=== PATIENT | male | born 1985 | race Two or more races ===

== ENCOUNTER → 2020-07-26 13:19 | Outpatient (CLI) | payer OTHER ==
[~2020-07-26 13:19] MED LIST: HEMATOGEN FA S1 EACH PO; PROTONIX40 MG PO
== END | disposition home or self-care (01) ==
LOC: LAB 13:19
PROVIDERS: ATTEND Radiology Diagnostic Radiology
DX: N20.0 Calculus of kidney (principal)

== ENCOUNTER → 2020-07-28 | Outpatient (CLI) | payer OTHER | END | disposition home or self-care (01) | LOC: MRI 07-26 13:49 | PROVIDERS: ATTEND Surgery | DX: C20 Malignant neoplasm of rectum (principal); R59.0 Localized enlarged lymph nodes; K62.5 Hemorrhage of anus and rectum; K59.09 Other constipation | CPT/HCPCS: 72196 ==

== ENCOUNTER 2020-08-02 06:30 | Day surgery (SDC) | payer OTHER | END 2020-08-02 13:45 | disposition home or self-care (01) | LOC: AMB-ENDOS 06:30 | PROVIDERS: ATTEND Surgery | DX: D12.8 Benign neoplasm of rectum (principal); K64.1 Second degree hemorrhoids; Z20.828 Contact with and (suspected) exposure to other viral communicable diseases ==

== ENCOUNTER → 2020-08-04 12:21 | Outpatient (CLI) | payer OTHER | END | disposition home or self-care (01) | LOC: LAB 12:21 | PROVIDERS: ATTEND Surgery | DX: U07.1 COVID-19 (principal); E11.9 Type 2 diabetes mellitus without complications; K59.09 Other constipation; Z20.828 Contact with and (suspected) exposure to other viral communicable diseases; Z11.59 Encounter for screening for other viral diseases; C20 Malignant neoplasm of rectum; R59.0 Localized enlarged lymph nodes; K62.5 Hemorrhage of anus and rectum ==

== ENCOUNTER 2020-08-06 10:20 | Outpatient (CLI) | payer OTHER ==
[2020-08-06] MEDS ORDERED: PROTONIX40 MG PO (14:52)
[2020-08-06] MEDS ORDERED: HEMATOGEN FA S1 EACH PO (14:54)
== END 2020-08-06 10:27 | disposition home or self-care (01) ==
LOC: TOM 10:20
PROVIDERS: ATTEND Surgery
DX: C20 Malignant neoplasm of rectum (principal); R59.0 Localized enlarged lymph nodes; K62.5 Hemorrhage of anus and rectum; K59.09 Other constipation; K56.690 Other partial intestinal obstruction

== ENCOUNTER 2020-08-06 11:30 | Inpatient (IN) | payer OTHER ==
[~2020-08-06] VITALS: Ht 185.4 cm; Wt 90.7 kg
[2020-08-06] MEDS ORDERED: PROTONIX40 MG PO (14:52)
[2020-08-06] MEDS ORDERED: HEMATOGEN FA S1 EACH PO (14:54)
[2020-09-04] MEDS ORDERED: LOPERAMIDE2 MG PO (14:24)
[2020-09-04] MEDS ORDERED: PERCOCET 5-3251 EACH PO (14:26)
== END 2020-09-04 15:10 | disposition home or self-care (01) | DRG 331 ==
LOC: SURH 08-10 11:30 → O/R 08-31 07:46 → SURH 08-31 11:30 → SURG 09-01 14:13
PROVIDERS: ADMIT Surgery; ATTEND Surgery
PROC: 0DBN4ZZ Excision of Sigmoid Colon, Percutaneous Endoscopic Approach (ICD-10-PCS; 2020-08-31)
PROC: 07BC4ZX Excision of Pelvis Lymphatic, Percutaneous Endoscopic Approach, Diagnostic (ICD-10-PCS; 2020-08-31)
PROC: 0D1B4Z4 Bypass Ileum to Cutaneous, Percutaneous Endoscopic Approach (ICD-10-PCS; 2020-08-31)
PROC: 0DTP4ZZ Resection of Rectum, Percutaneous Endoscopic Approach (ICD-10-PCS; principal; 2020-08-31 13:30)
PROC: 4A12X4Z Monitoring of Cardiac Electrical Activity, External Approach (ICD-10-PCS; 2020-09-01)
DX: C20 Malignant neoplasm of rectum (principal); R59.0 Localized enlarged lymph nodes; G47.39 Other sleep apnea

== ENCOUNTER 2020-10-25 06:02 | Day surgery (SDC) | payer OTHER ==
[~2020-10-25 06:02] MED LIST changes: +LOPERAMIDE2 MG PO; +PERCOCET 5-3251 EACH PO
== END 2020-10-25 13:20 | disposition home or self-care (01) ==
LOC: AMB-ENDOS 06:02 → CIR.AMB 15:15
PROVIDERS: ATTEND Surgery
DX: D12.0 Benign neoplasm of cecum (principal); D12.2 Benign neoplasm of ascending colon; Z20.828 Contact with and (suspected) exposure to other viral communicable diseases

== ENCOUNTER 2020-12-08 09:45 | Inpatient (IN) | payer OTHER ==
[~2020-12-08] VITALS: Ht 185.4 cm; Wt 90.7 kg
[2020-12-08] MEDS ORDERED: VITABEX IRON C1 EACH PO (11:22)
[2020-12-17] MEDS ORDERED: OMEPRAZOLE20 MG PO (10:54)
[2020-12-17] MEDS ORDERED: PERCOCET 5-3251 EACH PO (10:54)
== END 2020-12-17 11:26 | disposition home or self-care (01) | DRG 330 ==
LOC: O/R 12-14 06:02 → SURG 12-14 06:02 → SURH 12-14 09:45 → SURG 12-14 10:46 → SURH 12-14 11:00 → SURG 12-17 11:26
PROVIDERS: ADMIT Surgery; ATTEND Surgery
PROC: 07BC4ZX Excision of Pelvis Lymphatic, Percutaneous Endoscopic Approach, Diagnostic (ICD-10-PCS; 2020-12-14)
PROC: 0DSB4ZZ Reposition Ileum, Percutaneous Endoscopic Approach (ICD-10-PCS; 2020-12-14)
PROC: 0DTF4ZZ Resection of Right Large Intestine, Percutaneous Endoscopic Approach (ICD-10-PCS; principal; 2020-12-14 10:45)
DX: D12.2 Benign neoplasm of ascending colon (principal); C20 Malignant neoplasm of rectum; Z93.2 Ileostomy status

== ENCOUNTER 2020-12-31 07:32 | Inpatient (IN) | payer OTHER ==
[~2020-12-31] VITALS: Ht 185.4 cm
[~2020-12-31 07:32] MED LIST changes: +OMEPRAZOLE20 MG PO; +VITABEX IRON C1 EACH PO
--- NOTE | 2020-12-31 07:46 | NUR ---
PTE REFERIDO POR DR JOSE M TRAMMELL REFIERE TRISH DOLOR AREA DEL ABDOMEN Y FIEBRE SE PHUONG S/V YS EUBIAC EN AREA DE OBSERVACION
--- NOTE | 2020-12-31 09:06 | NUR ---
MR Nikita MENDES ORIENTA A PACIENTE SOBRE ORDENES MEDICAS, COLECTA MUESTRAS DE MADIHA, CANALIZA VENA Y ADMINISTRA JOANA ORDENADO. SE HACE ENTREGA DE CONSTRASTE CON INSTRUCCIONES DE MARY INGERIRLO, PACIENTE REFIERE ENTENDER. PENDIENTE MUESTRA DE ORINA, TIENE ENVASE.
[2021-01-12] MEDS ORDERED: PEPCID AC20 MG PO (11:15)
[2021-01-12] MEDS ORDERED: INTEGRA F CAPS1 EACH PO (11:15)
[2021-01-12] MEDS ORDERED: PROTONIX40 MG PO (11:15)
[2021-01-12] MEDS ORDERED: INTESTINEX680 M1 PO (11:15)
[2021-01-12] MEDS ORDERED: ABANEU-SL TABL1 EACH SL (11:15)
[2021-01-12] MEDS ORDERED: AUGMENTIN PO (11:15)
== END 2021-01-12 12:03 | disposition home or self-care (01) | DRG 856 ==
LOC: ER 07:32 → SEC-K 16:23 → MEDJ 16:23 → MEDI 16:32 → MEDJ 17:07
PROVIDERS: ADMIT Internal Medicine Geriatric Medicine; ATTEND Internal Medicine Geriatric Medicine
PROC: BW21Y0Z Computerized Tomography (CT Scan) of Abdomen and Pelvis using Other Contrast, Unenhanced and Enhanced (ICD-10-PCS; 2020-12-31)
PROC: 02HV33Z Insertion of Infusion Device into Superior Vena Cava, Percutaneous Approach (ICD-10-PCS; 2021-01-01)
PROC: 3E04329 Introduction of Other Anti-infective into Central Vein, Percutaneous Approach (ICD-10-PCS; 2021-01-01)
PROC: 0W9J40Z Drainage of Pelvic Cavity with Drainage Device, Percutaneous Endoscopic Approach (ICD-10-PCS; principal; 2021-01-03)
PROC: BW21Y0Z Computerized Tomography (CT Scan) of Abdomen and Pelvis using Other Contrast, Unenhanced and Enhanced (ICD-10-PCS; 2021-01-10)
DX: T81.43XA Infection following a procedure, organ and space surgical site, initial encounter (principal); K65.1 Peritoneal abscess; K85.90 Acute pancreatitis without necrosis or infection, unspecified; C20 Malignant neoplasm of rectum; F43.23 Adjustment disorder with mixed anxiety and depressed mood; D64.9 Anemia, unspecified; R82.71 Bacteriuria; Z93.2 Ileostomy status; G47.39 Other sleep apnea; Z20.822 Contact with and (suspected) exposure to COVID-19

== ENCOUNTER 2021-02-11 07:19 | Day surgery (SDC) | payer OTHER ==
[~2021-02-11 07:19] MED LIST changes: +ABANEU-SL TABL1 EACH SL; +AUGMENTIN PO; +INTEGRA F CAPS1 EACH PO; +INTESTINEX680 M1 PO; +PEPCID AC20 MG PO
[2021-02-11] MEDS ORDERED: PERCOCET 5-3251 EACH PO (11:22)
== END 2021-02-11 15:50 | disposition home or self-care (01) ==
LOC: CIR.AMB 07:19
PROVIDERS: ATTEND Surgery
DX: C20 Malignant neoplasm of rectum (principal); Z20.822 Contact with and (suspected) exposure to COVID-19
CPT/HCPCS: 36561; C1751

== ENCOUNTER 2021-03-08 08:50 | Outpatient (CLI) | payer OTHER | END 2021-03-08 08:51 | disposition home or self-care (01) | LOC: PPH VACUNA 08:50 | DX: Z23 Encounter for immunization (principal) ==

== ENCOUNTER → 2021-03-31 08:09 | Outpatient (CLI) | payer OTHER | END | disposition home or self-care (01) | LOC: PPH VACUNA 08:09 | DX: Z23 Encounter for immunization (principal) ==

== ENCOUNTER → 2021-07-13 12:32 | Outpatient (CLI) | payer OTHER | END | disposition home or self-care (01) | LOC: LAB 12:32 | PROVIDERS: ATTEND Internal Medicine Geriatric Medicine | DX: D50.8 Other iron deficiency anemias (principal); E03.8 Other specified hypothyroidism; E78.2 Mixed hyperlipidemia; I11.9 Hypertensive heart disease without heart failure; E56.8 Deficiency of other vitamins; N39.0 Urinary tract infection, site not specified; Z12.11 Encounter for screening for malignant neoplasm of colon; E55.9 Vitamin D deficiency, unspecified; N19 Unspecified kidney failure; E11.9 Type 2 diabetes mellitus without complications; R80.8 Other proteinuria; C18.0 Malignant neoplasm of cecum; K92.1 Melena ==

== ENCOUNTER → 2021-07-15 15:00 | Outpatient (CLI) | payer OTHER | END | disposition home or self-care (01) | LOC: PPH VACUNA 15:00 | DX: Z23 Encounter for immunization (principal) ==

== ENCOUNTER → 2021-10-24 | Day surgery (SDC) | payer OTHER ==
[~2021-10-24] MED LIST changes: +PEPCID AC10 MG; +ULTRAM50 MG
== END | disposition home or self-care (01) ==
LOC: ADM 10-17 13:30 → CIR.AMB 10:18
PROVIDERS: ATTEND Surgery
DX: K62.89 Other specified diseases of anus and rectum (principal); Z20.822 Contact with and (suspected) exposure to COVID-19

== ENCOUNTER 2021-10-28 16:36 | Inpatient (IN) | payer OTHER ==
[~2021-10-28] VITALS: Ht 185.4 cm; Wt 81.6 kg
[~2021-10-28 16:36] MED LIST changes: -PEPCID AC10 MG; -ULTRAM50 MG
--- NOTE | 2021-10-28 17:26 | NUR ---
PACIENTE ALERTA Y ORIENTADO POR DANIS. REFIERE SER PACIENTE DE CANCER COLON, LE REALIZARON MADHURI COLONOSCOPIA EL NEREIDA TRAMMELL Y DESDE ENTONCES COMENZO CON VOMITOS Y DIARREAS CON MADIHA.LUEGO COMENZO CON FIEBRE. REFIERE LAS DIARREAS CONTINUAN HOY CON 5 Y NAUSEAS.
[2021-10-28] MEDS ORDERED: PEPCID AC10 MG (17:28)
[2021-10-28] MEDS ORDERED: ULTRAM50 MG (17:29)
--- NOTE | 2021-10-28 18:53 | NUR ---
PTE ALERTA,ESTABLE Y ORIENTADA.SE EDUCA SOBRE EL TRATAMIENTO QUE RECIBIRA EN EL HOSPITAL Y ESTA REFIERE ENTENDER.SE LE PHUONG MUESTRAS DE MADIHA ANUP ORDEN MEDICA Y SE LE ADMINISTRA MEDICAMENTOS ANUP ORDEN MEDICA.
--- NOTE | 2021-10-28 22:12 | NUR ---
[facility]
[2021-11-03] MEDS ORDERED: PRILOSEC OTC20 MG PO (17:47)
[2021-11-03] MEDS ORDERED: INTESTINEX680 M1 PO (17:47)
[2021-11-03] MEDS ORDERED: LEVSIN/SL0.125 MG SL (17:47)
== END 2021-11-03 20:01 | disposition home or self-care (01) | DRG 391 ==
LOC: ER 16:36 → SEC-K 22:37 → SURH 10-29 10:33
PROVIDERS: ADMIT Surgery; ATTEND Surgery
PROC: BW211ZZ Computerized Tomography (CT Scan) of Abdomen and Pelvis using Low Osmolar Contrast (ICD-10-PCS; 2021-10-28)
PROC: 02HV33Z Insertion of Infusion Device into Superior Vena Cava, Percutaneous Approach (ICD-10-PCS; principal; 2021-10-31)
PROC: BW2110Z Computerized Tomography (CT Scan) of Abdomen and Pelvis using Low Osmolar Contrast, Unenhanced and Enhanced (ICD-10-PCS; 2021-11-02)
DX: K52.89 Other specified noninfective gastroenteritis and colitis (principal); K65.1 Peritoneal abscess; C20 Malignant neoplasm of rectum; E86.0 Dehydration; K62.89 Other specified diseases of anus and rectum; Z90.49 Acquired absence of other specified parts of digestive tract; Z93.2 Ileostomy status

== ENCOUNTER 2022-08-22 21:26 | Inpatient (IN) | payer OTHER ==
[~2022-08-22] VITALS: Ht 185.4 cm; Wt 83.9 kg
[~2022-08-22 21:26] MED LIST changes: +LEVSIN/SL0.125 MG SL; +PEPCID AC10 MG; +PRILOSEC OTC20 MG PO; +ULTRAM50 MG
[2022-08-22] MEDS ORDERED: PEPCID AC20 MG (21:59)
[2022-08-29] MEDS ORDERED: PEPCID AC20 MG PO (13:18)
[2022-08-29] MEDS ORDERED: TRAMADOL HCL50 MG PO (13:18)
[2022-08-29] MEDS ORDERED: INTESTINEX680 M1 PO (13:18)
[2022-08-29] MEDS ORDERED: NUPERCAINAL56.7 GM TOP (13:32)
== END 2022-08-29 17:57 | disposition home or self-care (01) | DRG 349 ==
LOC: ER 21:26 → MEDI 22:46 → MEDJ 22:46 → MEDI 08-23 15:26
PROVIDERS: Surgery; ADMIT Internal Medicine Geriatric Medicine; ATTEND Internal Medicine Geriatric Medicine
PROC: BW21Y0Z Computerized Tomography (CT Scan) of Abdomen and Pelvis using Other Contrast, Unenhanced and Enhanced (ICD-10-PCS; 2022-08-23)
PROC: 3E0T3BZ Introduction of Anesthetic Agent into Peripheral Nerves and Plexi, Percutaneous Approach (ICD-10-PCS; 2022-08-25)
PROC: 0D9Q7ZZ Drainage of Anus, Via Natural or Artificial Opening (ICD-10-PCS; principal; 2022-08-25 13:00)
DX: K61.0 Anal abscess (principal); K52.9 Noninfective gastroenteritis and colitis, unspecified; B96.20 Unspecified Escherichia coli [E. coli] as the cause of diseases classified elsewhere; B96.4 Proteus (mirabilis) (morganii) as the cause of diseases classified elsewhere; B96.7 Clostridium perfringens [C. perfringens] as the cause of diseases classified elsewhere; Z85.048 Personal history of other malignant neoplasm of rectum, rectosigmoid junction, and anus; Z20.822 Contact with and (suspected) exposure to COVID-19

== ENCOUNTER 2022-10-04 19:46 | Inpatient (IN) | payer OTHER ==
[~2022-10-04] VITALS: Ht 185.4 cm; Wt 72.6 kg
[~2022-10-04 19:46] MED LIST changes: +NUPERCAINAL56.7 GM TOP; +PEPCID AC20 MG; +TRAMADOL HCL50 MG PO
[2022-10-04] MEDS ORDERED: PERCOCET 2.5-31 EACH PO (20:04)
[2022-10-04] MEDS ORDERED: IMODIUM A-D2 M2 PO (20:05)
--- NOTE | 2022-10-04 20:06 | NUR ---
SE RECIBE PTE ALERTO Y ORIENTADO X3. PTE REFIERE HX CANCER DE COLON, FISTULA Y ABCESO EN AREA PERIANAL. PTE VERBALIZA QUE ABCESO SE "EXPLOTO". PTE NO TOLERA CAMINAR, VERBALIZA INCONTINENCIA. ES PTE DE DR BORGES. SE [place] SV Y SE UBICA.
--- NOTE | 2022-10-04 20:57 | NUR ---
SE ORIENTA PTE SOBRE TX MEDICO EL CUAL REFIERE ENTENDER.SE LE EXTRAEN MUESTRAS BAJO MEDIDAS ASEPTICAS,PTE CON PICC LINE EN BRAZO LT,SE COLOCAN FLUIDOS DE MANTENIMIENTO.
[2022-11-09] MEDS ORDERED: GABAPENTIN300 MG PO (17:04)
[2022-11-09] MEDS ORDERED: INTESTINEX680 M1 PO (17:04)
[2022-11-09] MEDS ORDERED: TRAMADOL HCL50 MG PO (17:04)
== END 2022-11-09 18:40 | disposition home or self-care (01) | DRG 330 ==
LOC: ER 19:46 → SEC-K 21:42 → SURH 21:42
PROVIDERS: Surgery; Urology; ADMIT Internal Medicine Geriatric Medicine; ATTEND Internal Medicine Geriatric Medicine
PROC: 0T788DZ Dilation of Bilateral Ureters with Intraluminal Device, Via Natural or Artificial Opening Endoscopic (ICD-10-PCS; 2022-10-31)
PROC: 0J9B30Z Drainage of Perineum Subcutaneous Tissue and Fascia with Drainage Device, Percutaneous Approach (ICD-10-PCS; 2022-10-31)
PROC: 0D1L4Z4 Bypass Transverse Colon to Cutaneous, Percutaneous Endoscopic Approach (ICD-10-PCS; principal; 2022-10-31 10:30)
PROC: 0DTP4ZZ Resection of Rectum, Percutaneous Endoscopic Approach (ICD-10-PCS; 2022-10-31 10:30)
DX: K61.0 Anal abscess (principal); C20 Malignant neoplasm of rectum; K51.214 Ulcerative (chronic) proctitis with abscess; Z16.12 Extended spectrum beta lactamase (ESBL) resistance; K51.211 Ulcerative (chronic) proctitis with rectal bleeding; K62.7 Radiation proctitis; B96.1 Klebsiella pneumoniae [K. pneumoniae] as the cause of diseases classified elsewhere; D50.0 Iron deficiency anemia secondary to blood loss (chronic); Z90.49 Acquired absence of other specified parts of digestive tract
CPT/HCPCS: 72196

== ENCOUNTER 2022-11-22 01:40 | Inpatient (IN) | payer OTHER ==
[~2022-11-22] VITALS: Ht 185.4 cm; Wt 68.0 kg
[~2022-11-22 01:40] MED LIST changes: +GABAPENTIN300 MG PO; +IMODIUM A-D2 M2 PO; +PERCOCET 2.5-31 EACH PO
--- NOTE | 2022-11-22 02:30 | NUR ---
SE RECIBE PTE ALERTA ORIENTADO X3.PTE REFIERE TENER VOMITOS X7 DESDE KENNY.PTE REFIERE TENER DOLOR ABDOMINAL LYNDA DESDE KENNY.PTE REFIERE TNER NAUSEAS.PTE DE Y JOSE M TRAMMELL.
--- NOTE | 2022-11-22 03:31 | NUR ---
SE RECIBE PTE ALERTA ORIENTADO X3 EN CAMA CON BARANDAS ELEVADAS POR CORONA SEGURIDAD EN COMPANIA DE FAMILIAR.SE PHUONG MUESTRAS DE LABORATORIO USANDO MEDIDAS ASEPTICAS.SE ADMINISTRAN MEDICAMENTOS ANUP ORDEN MEDICA.SE ORIENTA PTE Y FAMILIAR SOBRE OBJETIVO DE [place] MEDICO.PENDIENTE CT.MANEJADO POR AIXA SAAB.
[2022-11-25] MEDS ORDERED: LEVSIN/SL0.125 MG SL (12:52)
[2022-11-25] MEDS ORDERED: INTESTINEX680 M1 PO (12:53)
== END 2022-11-25 13:39 | disposition home or self-care (01) | DRG 389 ==
LOC: ER 01:40 → SURH 16:51 → SURG 11-23 13:59
PROVIDERS: ADMIT Surgery; ATTEND Surgery
PROC: 0D9670Z Drainage of Stomach with Drainage Device, Via Natural or Artificial Opening (ICD-10-PCS; principal; 2022-11-22)
PROC: BW21YZZ Computerized Tomography (CT Scan) of Abdomen and Pelvis using Other Contrast (ICD-10-PCS; 2022-11-22)
PROC: 02HV33Z Insertion of Infusion Device into Superior Vena Cava, Percutaneous Approach (ICD-10-PCS; 2022-11-23)
PROC: 3E0436Z Introduction of Nutritional Substance into Central Vein, Percutaneous Approach (ICD-10-PCS; 2022-11-23)
DX: K56.609 Unspecified intestinal obstruction, unspecified as to partial versus complete obstruction (principal); C20 Malignant neoplasm of rectum; Z20.822 Contact with and (suspected) exposure to COVID-19